=== PATIENT | female | born 1945 | race Two or more races ===

== ENCOUNTER 2023-04-01 19:06 | Emergency (ER) | payer OTHER ==
[~2023-04-01] VITALS: Ht 167.6 cm; Wt 54.4 kg
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
--- NOTE | 2023-04-01 19:50 | NUR ---
DR. SHERWOOD AT BEDSIDE
--- NOTE | 2023-04-01 19:53 | NUR ---
ATTEMPTED TO CONTACT DANO AT [phone]. NO ANSWER X2, LEFT VM.
--- NOTE | 2023-04-01 20:10 | NUR ---
URINE COLLECTED SENT TO LAB
--- NOTE | 2023-04-01 20:10 | NUR ---
LAB AT BEDSIDE
[2023-04-01 20:25] LABS: BASOPHILS # (AUTO) 0.1 K/uL (0.0-0.2); BASOPHILS % (AUTO) 0.6 % (0.0-2.0); EOSINOPHILS % (AUTO) 2.2 % (0.0-6.0); HEMATOCRIT 41 % (33-45); HEMOGLOBIN 13.7 g/dL (11.5-14.8); LYMPHOCYTES # (AUTO) 2.2 K/uL (0.8-4.8); LYMPHOCYTES % (AUTO) 28.8 % (20.0-44.0); MEAN CORPUSCULAR HGB CONC 34 g/dl (31.0-36.0); MEAN CORPUSCULAR VOLUME 101 fL (82-100); MONOCYTES # (AUTO) 0.5 K/uL (0.1-1.30); NEUTROPHILS # (AUTO) 4.8 K/uL (1.8-8.9); NEUTROPHILS % (AUTO) 61.4 % (43.0-81.0); PLATELET COUNT (AUTO) 246 K/uL (150-450); RED BLOOD CELL COUNT(AUTO) 4.02 MIL/uL (4.0-5.2); WHITE BLOOD COUNT (AUTO) 7.8 K/uL (4.3-11.0)
--- NOTE | 2023-04-01 20:35 | NUR ---
BROUGHT TO CT DEPT
[2023-04-01 20:42] LABS: CALCIUM, SERUM 9.9 mg/dL (8.5-10.1); CREATININE 0.6 mg/dL (0.6-1.3); POTASSIUM 3.6 mmol/L (3.5-5.1)
[2023-04-01 20:45] LABS: ALBUMIN 3.7 g/dL (3.4-5.0)
--- NOTE | 2023-04-01 20:55 | NUR ---
PT RETURNED FROM CT
[2023-04-01 21:28] LABS: BILIRUBIN,DIRECT 0.2 mg/dL (0.0-0.2); BILIRUBIN,TOTAL 0.5 mg/dL (0.2-1.0); TOTAL PROTEIN, SERUM 7.4 g/dL (6.4-8.2)
--- NOTE | 2023-04-01 22:24 | NUR ---
Patient discharged to home in stable condition. Written and verbal after care instructions given. Patient verbalizes understanding of instruction.IV removed. Catheter intact and site benign. Pressure and 4x4 applied to site. No bleeding noted.
[2023-04-01 22:25] VITALS: BP 126/80
== END 2023-04-01 22:42 | disposition home or self-care (01) ==
LOC: ER 19:09
DX: M25.512 Pain in left shoulder (principal); F10.129 Alcohol abuse with intoxication, unspecified; R51.9 Headache, unspecified; M54.2 Cervicalgia; E78.00 Pure hypercholesterolemia, unspecified; Z90.710 Acquired absence of both cervix and uterus; V89.2XXA Person injured in unspecified motor-vehicle accident, traffic, initial encounter; Y93.89 Activity, other specified; Y92.89 Other specified places as the place of occurrence of the external cause; Y99.8 Other external cause status; Y90.8 Blood alcohol level of 240 mg/100 ml or more
CPT/HCPCS: 99284; 71045; 72125; 70450; 73020; 85025; 80048; 80076; 36415; 82962; 80320; 80307; A6403; G0480